=== PATIENT | female | born 1965 | race African-American/Black ===

== ENCOUNTER 2016-10-23 13:11 | Emergency (ER) | payer MEDICAID ==
[2016-10-23] MEDS ORDERED: Ketorolac Tromethamine 60 MG/2 ML VIAL ONE (14:00)
[2016-10-23 14:29] LABS: Clarity Slightly Cloudy (Clear); Glucose, Urine (Dipstick) Negative (Negative); Leukocyte Trace (Negative); Nitrite Negative (Negative); Pregnancy Test - Urine (BHCG) Negative (Negative); Pregu Control Background? CLEAR/WHITE (CLR/WHITE); Pregu Control Bar Appear? YES (CONTROL BAR); Protein, Urine (Dipstick) Negative (Neg-Trace); Specific Gravity 1.015 (1.002-1.036); Specific Gravity, Urine 1.015 (1.005-1.030); pH, Urine 5.5 (5.0-9.0)
[2016-10-23 14:30] LABS: Bacteria/HPF 4+ HPF (None Seen); Bilirubin Negative (Negative); Blood, Urine Large (Negative); RBC/HPF GREATER THAN 50-TNTC HPF (0-3); Renal Epithelial 0-3 HPF (0-3); Transitional Epithelial 0-3 HPF (0-3); Urobilinogen 0.2 mg/dL (0.2-1.0); WBC/HPF 21-50 HPF (0-3); Yeast-All Forms 1+ HPF (None Seen)
[2016-10-23] MEDS ORDERED: Ciprofloxacin 500 MG TAB ONE (14:54)
[2016-10-23] MEDS ORDERED: Fentanyl 100 MCG/2 ML VIAL ONE (14:54)
== END 2016-10-23 15:13 | disposition home or self-care (01) ==
LOC: MADERS 13:11
DX: N10 Acute pyelonephritis (principal); I10 Essential (primary) hypertension; Z79.899 Other long term (current) drug therapy
CPT/HCPCS: 81003; 81015; 81025; 87077; 87086; 96372; J1885; J3010